=== PATIENT | female | born 1990 | race African-American/Black ===

== ENCOUNTER 2016-02-13 21:10 | Emergency (ER) | payer MEDICARE, MEDICAID ==
--- NOTE | 2016-02-13 21:30 | ER Document Report ---
ED Medical Screen (RME) - General Stated Complaint: VOMITING Time seen by provider: 21:29 Mode of Arrival: Ambulatory Information source: Patient Notes: 26 yo female told by her sexual partner that he was tx for gonorrhea and chlamydia in the ER. She has pelvic pain and was attributing it to her LUPUS> TRAVEL OUTSIDE OF THE [place] IN LAST 30 DAYS: No - Related Data Allergies/Adverse Reactions: ciprofloxacin [From Cipro] Allergy (Severe, Verified 11/28/12 21:23) ciprofloxacin HCl [From Cipro] Allergy (Severe, Verified 11/28/12 21:23) Past Medical History - Past Medical History Cardiac Medical History: Denies: Hx Hypercholesterolemia, Hx Hypertension Past Surgical History: Reports: Hx Orthopedic Surgery - Immunizations Hx Diphtheria, Pertussis, Tetanus Vaccination: - Unknown
[2016-02-13 22:15] LABS: ABSOLUTE LYMPHOCYTES (AUTO) 1.1 10^3/uL (0.5-4.7); ABSOLUTE MONOCYTES (AUTO) 0.4 10^3/uL (0.1-1.4); ABSOLUTE NEUT (AUTO) 3.4 10^3/uL (1.7-8.2); BASOPHILS % (AUTO) 0.7 % (0-2); HEMATOCRIT 33.8 % (36.0-47.0); HEMOGLOBIN 11.6 g/dL (12.0-15.5); LYMPHOCYTES % (AUTO) 21.7 % (13-45); MEAN CORPUSCULAR HEMOGLOBIN 29.6 pg (27.0-33.4); MEAN CORPUSCULAR HGB CONC 34.3 g/dL (32.0-36.0); MEAN CORPUSCULAR VOLUME 86 fl (80-97); MONOCYTES % (AUTO) 8.5 % (3-13); RED BLOOD COUNT 3.92 10^6/uL (3.72-5.28); RED CELL DISTRIBUTION WIDTH 12.6 % (11.5-14.0); SEGMENTED NEUTROPHILS % (AUTO) 68.1 % (42-78); WHITE BLOOD COUNT 4.9 10^3/uL (4.0-10.5)
[2016-02-13 22:20] LABS: APPEARANCE,URINE SLIGHTLY-CLOUDY; BILIRUBIN,URINE NEGATIVE (NEGATIVE); GLUCOSE, URINE NEGATIVE (NEGATIVE); KETONES,URINE NEGATIVE (NEGATIVE); LEUKOCYTE ESTERASE,URINE NEGATIVE (NEGATIVE); NITRITE,URINE NEGATIVE (NEGATIVE); PROTEIN,URINE >=500 mg/dL (NEGATIVE); URINE SPECIFIC GRAVITY 1.014; UROBILINOGEN,URINE NEGATIVE mg/dL (<2.0)
[2016-02-13 22:38] LABS: ALANINE AMINOTRANSFERASE 25 U/L (9-52); ALBUMIN 1.7 g/dL (3.5-5.0); ALKALINE PHOSPHATASE 84 U/L (38-126); ASPARTATE AMINO TRANSFERASE 17 U/L (14-36); BILIRUBIN,TOTAL 0.2 mg/dL (0.2-1.3); BLOOD UREA NITROGEN 10 mg/dL (7-20); CALCIUM 7.8 mg/dL (8.4-10.2); CARBON DIOXIDE 26 mmol/L (22-30); CHLORIDE 111 mmol/L (98-107); CREATININE RESULT 1.05 mg/dL (0.52-1.25); GLUCOSE 77 mg/dL (75-110); SODIUM 138.9 mmol/L (137-145); TOTAL PROTEIN 4.4 g/dL (6.3-8.2)
[2016-02-13 22:43] LABS: ANION GAP 2 (5-19)
--- NOTE | 2016-02-13 22:50 | ER Document Report ---
ED General - General Chief Complaint: Abdominal Pain Stated Complaint: VOMITING Mode of Arrival: Ambulatory Notes: Patient is a 26-year-old female presents with complaint of some lower extremity edema, worsening of her lupus rash, intermittent lower abdominal cramping. She' s had a few episodes of vomiting. She also has some diarrhea. Her boyfriend had some her symptoms with diarrhea and some vomiting. Recently her boyfriend was tested and treated for gonorrhea and chlamydia. She is concerned that maybe she has the same thing. She's had no abnormal vaginal discharge. She did have slight irregular vaginal bleeding but also recently changed her control. She is followed by [facility] for her lupus. She is currently on multiple medications. She is currently not on a prednisone burst. She takes 5 mg prednisone a day at this time. Subjective fevers. No other complaints at this time. TRAVEL OUTSIDE OF THE [place] IN LAST 30 DAYS: No - Related Data Allergies/Adverse Reactions: ciprofloxacin [From Cipro] Allergy (Severe, Verified 02/13/16 21:32) ciprofloxacin HCl [From Cipro] Allergy (Severe, Verified 02/13/16 21:32) Past Medical History - General Information source: Patient - Social History Smoking Status: Never Smoker Frequency of alcohol use: None Drug Abuse: None Family History: Reviewed & Not Pertinent - Past Medical History Cardiac Medical History: Denies: Hx Hypercholesterolemia, Hx Hypertension Past Surgical History: Reports: Hx Orthopedic Surgery - Immunizations Hx Diphtheria, Pertussis, Tetanus Vaccination: - Unknown Review of Systems - Review of Systems Notes: My Normal Review Basic REVIEW OF SYSTEMS: CONSTITUTIONAL : Subjective fever EENT: Denies eye, ear, throat, or mouth pain or symptoms. Denies nasal or sinus congestion. CARDIOVASCULAR: Denies chest pain. RESPIRATORY: Denies cough, cold, or chest congestion. Denies shortness of breath, difficulty breathing, or wheezing. GASTROINTESTINAL: Some abdominal pain, vomiting, and diarrhea. GENITOURINARY: Denies difficulty urinating, painful urination, burning, frequency, or blood in urine. FEMALE GENITOURINARY: 1 irregular episode of vaginal bleeding. MUSCULOSKELETAL: Denies neck or back pain or joint pain or swelling. SKIN: Is rash on face. NEUROLOGICAL: Denies altered mental status or loss of consciousness. Denies headache. Denies weakness or paralysis or loss of use of either side. Denies problems with gait or speech. Denies sensory or motor loss. ALL OTHER SYSTEMS REVIEWED AND NEGATIVE. Physical Exam - Vital signs Vitals: Temp Pulse Resp BP Pulse Ox 98.1 F 87 16 128/96 H 99 02/13/16 21:32 02/13/16 21:32 02/13/16 21:32 02/13/16 21:32 02/13/16 21:32 - Notes Notes: General Appearance: Well nourished, alert, cooperative, no acute distress, no obvious discomfort. Well-appearing. Vitals: reviewed, See vital signs table. Head: no swelling or tenderness to the head Eyes: PERRL, EOMI, Conjuctiva clear Mouth: No decreasd moisture Neck: Supple, no neck tenderness, No thyromegaly Lungs: No wheezing, No rales, No rhonci, No accessory muscle use, good air exchange bilaterally. Heart: Normal rate, Regular rythm, No murmur, no rub Abdomen: Normal BS, soft, No rigidity, No producible abdominal tenderness, No guarding, no rebound, no abdominal masses, no organomegaly Extremities: strength 5/5 in all extremities, good pulses in all extremities, no swelling or tenderness in the extremities, 1+ lower extremity edema. Skin: Butterfly pattern rash on face. Consistent with lupus. Neuro: speech clear, oriented x 3, normal affect, responds appropriately to questions. Course - Vital Signs Vital signs: Temp Pulse Resp BP Pulse Ox 98.1 F 87 16 128/96 H 99 02/13/16 21:32 02/13/16 21:32 02/13/16 21:32 02/13/16 21:32 02/13/16 21:32 - Laboratory Result Diagrams: 02/13/16 21:50 02/13/16 21:50 Laboratory results interpreted by me: 02/13/16 02/13/16 02/13/16 21:50 21:50 21:50 Hgb 11.6 L Hct 33.8 L Chloride 111 H Anion Gap 2 L Calcium 7.8 L Total Protein 4.4 L Albumin 1.7 L Urine Protein >=500 H Urine Ascorbic Acid 20 H - Transfer of Care Notes: 02/14/16 00:10 Patient continues to look well and feels improved. She had no actual vaginal discharge and her gonorrhea and Chlamydia testing were negative. I do not think that she transmitted diseases causing her symptoms. Her symptoms were consistent with a lupus flare being that she's had worsening of her malar rash as well as lower extremity edema. I did recommend increasing her prednisone. She prefers to wait to talk to her lupus doctor at [place] in the morning. I informed her that she must call her doctor at [place] in the morning to talk to him about doing a burst of the prednisone. Patient otherwise looks clinically very well. She's in no pain. She's in no distress. She has no difficulty breathing. She has no fevers. I feel she is safe to be discharged home. I strongly encourage her to return to ER she has any recurrence of her symptoms or feels unwell. Patient agrees with plan and will be discharged home. Dictation of this chart was performed using voice recognition software; therefore, there may be some unintended grammatical errors. Discharge - Discharge Clinical Impression: Abdominal pain Qualifiers: Abdominal location: unspecified location Qualified Code(s): R10.9 - Unspecified abdominal pain Vomiting Qualifiers: Vomiting type: unspecified Vomiting Intractability: non-intractable Nausea presence: with nausea Qualified Code(s): R11.2 - Nausea with vomiting, unspecified Edema Qualifiers: Edema type: unspecified Qualified Code(s): R60.9 - Edema, unspecified Condition: Good Disposition: HOME, SELF-CARE Additional Instructions: Please call your Lupus doctor at [place] in the morning to ask them about increasing your prednisone and to have a close follow appointment. Please return to the ER immediately if you have worsening recurrent abdominal pain, vomiting, fevers, or feel unwell.
[2016-02-13 23:47] LABS: CHLAM PCR NOT DETECTED (NOT DETECT)
[2016-02-14 00:29] VITALS: BP 128/92
== END 2016-02-14 00:27 | disposition home or self-care (01) ==
LOC: ER 21:10
DX: R11.2 Nausea with vomiting, unspecified (principal); R60.0 Localized edema; R21 Rash and other nonspecific skin eruption; R19.7 Diarrhea, unspecified; Z20.2 Contact with and (suspected) exposure to infections with a predominantly sexual mode of transmission; N93.9 Abnormal uterine and vaginal bleeding, unspecified; Z79.899 Other long term (current) drug therapy; Z79.52 Long term (current) use of systemic steroids; Z79.3 Long term (current) use of hormonal contraceptives; Z88.1 Allergy status to other antibiotic agents
CPT/HCPCS: 36415; 80053; 81001; 84703; 85025; 87491; 87591; 99284

== ENCOUNTER → 2016-02-25 | Outpatient (CLI) | payer MEDICARE, MEDICAID ==
[2016-02-25 14:47] LABS: APPEARANCE,URINE SLIGHTLY-CLOUDY; BILIRUBIN,URINE NEGATIVE (NEGATIVE); GLUCOSE, URINE NEGATIVE (NEGATIVE); KETONES,URINE NEGATIVE (NEGATIVE); LEUKOCYTE ESTERASE,URINE NEGATIVE (NEGATIVE); NITRITE,URINE NEGATIVE (NEGATIVE); PROTEIN,URINE >=500 mg/dL (NEGATIVE); URINE SPECIFIC GRAVITY 1.013; UROBILINOGEN,URINE NEGATIVE mg/dL (<2.0)
[2016-02-25 14:48] LABS: ABSOLUTE LYMPHOCYTES (AUTO) 0.8 10^3/uL (0.5-4.7); ABSOLUTE MONOCYTES (AUTO) 0.3 10^3/uL (0.1-1.4); ABSOLUTE NEUT (AUTO) 4.3 10^3/uL (1.7-8.2); BASOPHILS % (AUTO) 0.3 % (0-2); EOSINOPHILS % (AUTO) 0.2 % (0-6); HEMOGLOBIN 10.6 g/dL (12.0-15.5); HGB HCT DIFFERENCE -1.2; LYMPHOCYTES % (AUTO) 14.3 % (13-45); MEAN CORPUSCULAR HEMOGLOBIN 28.3 pg (27.0-33.4); MEAN CORPUSCULAR HGB CONC 32.1 g/dL (32.0-36.0); MEAN CORPUSCULAR VOLUME 88 fl (80-97); MONOCYTES % (AUTO) 5.2 % (3-13); RED BLOOD COUNT 3.75 10^6/uL (3.72-5.28); RED CELL DISTRIBUTION WIDTH 13.1 % (11.5-14.0); WHITE BLOOD COUNT 5.4 10^3/uL (4.0-10.5)
[2016-02-25 15:12] LABS: ALANINE AMINOTRANSFERASE 20 U/L (9-52); ASPARTATE AMINO TRANSFERASE 14 U/L (14-36); CREATININE RESULT 0.87 mg/dL (0.52-1.25)
[2016-02-27 16:37] LABS: COMPLEMENT C4 7 mg/dL (14-44)
[2016-02-28 07:14] LABS: COMPLEMENT C3 56 mg/dL (82-167)
== END ==
LOC: OD 13:39
PROVIDERS: ATTEND Nurse Practitioner Family
DX: M32.19 Other organ or system involvement in systemic lupus erythematosus (principal); Z79.899 Other long term (current) drug therapy
CPT/HCPCS: 36415; 81001; 82565; 84450; 84460; 85025; 86160; 86225

== ENCOUNTER → 2016-03-15 | Outpatient (CLI) | payer MEDICARE, MEDICAID ==
[2016-03-15 12:53] LABS: APPEARANCE,URINE SLIGHTLY-CLOUDY; BILIRUBIN,URINE NEGATIVE (NEGATIVE); GLUCOSE, URINE NEGATIVE (NEGATIVE); KETONES,URINE NEGATIVE (NEGATIVE); LEUKOCYTE ESTERASE,URINE TRACE (NEGATIVE); NITRITE,URINE NEGATIVE (NEGATIVE); PROTEIN,URINE >=500 mg/dL (NEGATIVE); URINE SPECIFIC GRAVITY 1.011; UROBILINOGEN,URINE NEGATIVE mg/dL (<2.0)
[2016-03-15 12:54] LABS: ABSOLUTE LYMPHOCYTES (AUTO) 0.8 10^3/uL (0.5-4.7); ABSOLUTE MONOCYTES (AUTO) 0.3 10^3/uL (0.1-1.4); ABSOLUTE NEUT (AUTO) 5.2 10^3/uL (1.7-8.2); BASOPHILS % (AUTO) 0.3 % (0-2); EOSINOPHILS % (AUTO) 0.4 % (0-6); HEMATOCRIT 31.2 % (36.0-47.0); HEMOGLOBIN 10.6 g/dL (12.0-15.5); HGB HCT DIFFERENCE 0.6; LYMPHOCYTES % (AUTO) 12.4 % (13-45); MEAN CORPUSCULAR HEMOGLOBIN 29.4 pg (27.0-33.4); MEAN CORPUSCULAR HGB CONC 34.1 g/dL (32.0-36.0); MEAN CORPUSCULAR VOLUME 86 fl (80-97); MONOCYTES % (AUTO) 4.9 % (3-13); RED BLOOD COUNT 3.61 10^6/uL (3.72-5.28); RED CELL DISTRIBUTION WIDTH 13.8 % (11.5-14.0); WHITE BLOOD COUNT 6.4 10^3/uL (4.0-10.5)
[2016-03-15 13:12] LABS: ALANINE AMINOTRANSFERASE 22 U/L (9-52); ASPARTATE AMINO TRANSFERASE 11 U/L (14-36); CREATININE RESULT 1.84 mg/dL (0.52-1.25)
[2016-03-16 08:42] LABS: COMPLEMENT C4 11 mg/dL (14-44)
[2016-03-16 08:59] LABS: COMPLEMENT C3 55 mg/dL (82-167)
[2016-03-16 10:57] LABS: POTASSIUM 4.8 mmol/L (3.6-5.0); SODIUM 135.4 mmol/L (137-145)
[2016-03-16 11:40] LABS: CREATININE URINE 106.2 mg/dL (Not Estab.)
== END ==
LOC: OD 12:10
PROVIDERS: ATTEND Internal Medicine
DX: M32.9 Systemic lupus erythematosus, unspecified (principal); Z79.899 Other long term (current) drug therapy; I10 Essential (primary) hypertension
CPT/HCPCS: 36415; 80051; 81001; 82565; 82570; 84132; 84156; 84450; 84460; 85025; 86160; 86225

== ENCOUNTER → 2016-04-06 | Outpatient (CLI) | payer MEDICARE, MEDICAID ==
[2016-04-06 13:17] LABS: HEMATOCRIT 27.8 % (36.0-47.0); HEMOGLOBIN 9.5 g/dL (12.0-15.5); HGB HCT DIFFERENCE 0.7; MEAN CORPUSCULAR HEMOGLOBIN 29.7 pg (27.0-33.4); MEAN CORPUSCULAR HGB CONC 34.4 g/dL (32.0-36.0); MEAN CORPUSCULAR VOLUME 87 fl (80-97); RED BLOOD COUNT 3.21 10^6/uL (3.72-5.28); RED CELL DISTRIBUTION WIDTH 14.8 % (11.5-14.0); WHITE BLOOD COUNT 1.8 10^3/uL (4.0-10.5)
[2016-04-06 13:22] LABS: APPEARANCE,URINE SLIGHTLY-CLOUDY; BILIRUBIN,URINE NEGATIVE (NEGATIVE); GLUCOSE, URINE NEGATIVE (NEGATIVE); KETONES,URINE NEGATIVE (NEGATIVE); LEUKOCYTE ESTERASE,URINE NEGATIVE (NEGATIVE); NITRITE,URINE NEGATIVE (NEGATIVE); PROTEIN,URINE >=500 mg/dL (NEGATIVE); URINE SPECIFIC GRAVITY 1.012; UROBILINOGEN,URINE NEGATIVE mg/dL (<2.0)
[2016-04-06 13:30] LABS: ALANINE AMINOTRANSFERASE 21 U/L (9-52); ASPARTATE AMINO TRANSFERASE 11 U/L (14-36); CREATININE RESULT 1.27 mg/dL (0.52-1.25)
[2016-04-06 13:37] LABS: BASOPHILS % (MANUAL) 0 % (0-2); EOSINOPHILS % (MANUAL) 0 % (0-6); LYMPHOCYTES % (MANUAL) 5 % (13-45); TOTAL CELLS COUNTED 100
[2016-04-06 13:38] LABS: ANISOCYTOSIS SLIGHT; TOXIC GRANULATION 1+
[2016-04-07 06:39] LABS: COMPLEMENT C4 17 mg/dL (14-44)
[2016-04-07 10:45] LABS: COMPLEMENT C3 73 mg/dL (82-167)
[2016-04-07 11:40] LABS: CREATININE URINE 109.9 mg/dL (Not Estab.)
== END ==
LOC: OD 12:29
PROVIDERS: ATTEND Nurse Practitioner Family
DX: M32.14 Glomerular disease in systemic lupus erythematosus (principal)
CPT/HCPCS: 36415; 81001; 82565; 82570; 84156; 84450; 84460; 85025; 86160; 86225

== ENCOUNTER → 2016-10-25 | Outpatient (CLI) | payer MEDICARE, MEDICAID ==
--- NOTE | 2016-10-25 10:13 | XCELERA REPORT ---
[address] [address] Lower Extremity Venous Evaluation Name: BELLE YEAGER Age: 26 yrs Gender: Female : 1990 Patient Status: Outpatient Patient Location: Study Date: 10/25/2016 08:34 AM Procedure: Color flow and duplex imaging bilaterally of the veins of the lower extremities as well as the Common Femoral veins. Reason For Study: OTHER SPECIFIED SOFT TISSUE DISORDER M79.89 Ordering Physician: IGOR HARMON Performed By: Sierra Valencia Right Sided Venous Evaluation Normal vessel filling wall to wall, compression and augmentation as well as Colour flow down to the infrageniculate veins. Left Sided Venous Evaluation Normal vessel filling wall to wall, compression and augmentation as well as Colour flow down to the infrageniculate veins. Interpretation Summary No duplex evidence of DVT or obstruction in the bilateral lower extremities. : IGOR HARMON > Anatoliy Carlin
== END ==
LOC: SP 08:21
PROVIDERS: ATTEND Internal Medicine
DX: M79.89 Other specified soft tissue disorders (principal)
CPT/HCPCS: 93970

== ENCOUNTER → 2017-05-16 | Outpatient (CLI) | payer MEDICARE, MEDICAID ==
--- NOTE | 2017-05-16 10:59 | RADIOLOGY REPORT (SQ) ---
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 TECHNIQUE: CT scanogram of the bilateral lower extremities is performed including pelvis to ankles. Measurements of femur, tibia, and entire lower extremities performed by the radiologist and saved to PACS. All CT scanners at this facility use dose modulation, iterative reconstruction, and/or weight based d osing when appropriate to reduce radiation dose to as low as reasonably achievable (ALARA). [facility]: Dose Right [facility]: CareDose [facility]: Dose Right [facility]: Teradose 4D [facility]: [employer] RADIATION DOSE: Less than 0.1 mGy LIMITATIONS: None. FINDINGS: RIGHT: FEMUR: 48.7 cm. TIBIA: 38.4 cm. TOTAL RIGHT LOWER EXTREMITY LENGTH: 87.3 cm. LEFT: FEMUR: 48.5 cm. TIBIA: 38.4 cm. TOTAL LEFT LOWER EXTREMITY LENGTH: 87.1 cm. 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 TECHNICAL DOCUMENTATION: JOB ID: [id number] Quality ID # [id number]: Final reports with documentation of one or more dose reduction techniques (e.g., Au tomated exposure control, adjustment of the mA and/or kV according to patient size, use of iterative reconstruction technique) 2010 [employer]- All Rights Reserved Reading location - IP/workstation name: [email or web address]
== END ==
LOC: RAD 09:19
PROVIDERS: ATTEND Podiatrist Foot & Ankle Surgery
DX: Q72.812 Congenital shortening of left lower limb (principal); Z96.642 Presence of left artificial hip joint
CPT/HCPCS: 77073

== ENCOUNTER → 2017-06-29 | Outpatient (CLI) | payer MEDICARE, MEDICAID ==
[2017-06-29 17:02] LABS: ABSOLUTE LYMPHOCYTES (AUTO) 1.2 10^3/uL (0.5-4.7); ABSOLUTE MONOCYTES (AUTO) 0.3 10^3/uL (0.1-1.4); ABSOLUTE NEUT (AUTO) 2.7 10^3/uL (1.7-8.2); BASOPHILS % (AUTO) 0.5 % (0-2); EOSINOPHILS % (AUTO) 0.5 % (0-6); HEMATOCRIT 29.7 % (36.0-47.0); MEAN CORPUSCULAR HEMOGLOBIN 29.5 pg (27.0-33.4); MEAN CORPUSCULAR HGB CONC 33.6 g/dL (32.0-36.0); MEAN CORPUSCULAR VOLUME 88 fl (80-97); MONOCYTES % (AUTO) 7.9 % (3-13); PLATELET COUNT 180 10^3/uL (150-450); RED BLOOD COUNT 3.38 10^6/uL (3.72-5.28); RED CELL DISTRIBUTION WIDTH 15.6 % (11.5-14.0); SEGMENTED NEUTROPHILS % (AUTO) 63.1 % (42-78); TOTAL CELLS COUNTED % (AUTO) 100 %; WHITE BLOOD COUNT 4.2 10^3/uL (4.0-10.5)
[2017-06-29 17:04] LABS: APPEARANCE,URINE SLIGHTLY-CLOUDY; BILIRUBIN,URINE NEGATIVE (NEGATIVE); COLOR,URINE YELLOW; GLUCOSE, URINE NEGATIVE (NEGATIVE); KETONES,URINE NEGATIVE (NEGATIVE); LEUKOCYTE ESTERASE,URINE NEGATIVE (NEGATIVE); NITRITE,URINE NEGATIVE (NEGATIVE); PROTEIN,URINE >=500 mg/dL (NEGATIVE); URINE SPECIFIC GRAVITY 1.015; UROBILINOGEN,URINE NEGATIVE mg/dL (<2.0)
[2017-06-29 17:20] LABS: BLOOD UREA NITROGEN 17 mg/dL (7-20); CALCIUM 7.6 mg/dL (8.4-10.2); CREATINE KINASE 44 U/L (30-135); GLUCOSE 79 mg/dL (75-110); POTASSIUM 4.2 mmol/L (3.6-5.0)
[2017-06-29 17:24] LABS: URINE CREATININE 150.9 mg/dL (16-327)
[2017-06-29 17:26] LABS: CARBON DIOXIDE 24 mmol/L (22-30); CHLORIDE 115 mmol/L (98-107); SODIUM 138.8 mmol/L (137-145)
[2017-06-29 17:28] LABS: ANION GAP 2 (5-19)
[2017-06-29 17:54] LABS: UR PRO/CREAT RATIO RESULT 6.6 mg/mg (0.0-0.2); URINE PROTEIN 989.2 mg/dL (<12)
== END ==
LOC: OD 16:29
PROVIDERS: ATTEND Internal Medicine
DX: M32.14 Glomerular disease in systemic lupus erythematosus (principal); M87.152 Osteonecrosis due to drugs, left femur; R05 Cough; R06.02 Shortness of breath; M79.89 Other specified soft tissue disorders; D64.9 Anemia, unspecified; Z11.59 Encounter for screening for other viral diseases
CPT/HCPCS: 36415; 80048; 81001; 82550; 82570; 83735; 84156; 85025

== ENCOUNTER → 2019-12-15 | Outpatient (CLI) | payer MEDICARE, MEDICAID ==
[2019-12-15 18:43] LABS: APPEARANCE,URINE CLEAR; BILIRUBIN,URINE NEGATIVE (NEGATIVE); COLOR,URINE STRAW; GLUCOSE, URINE NEGATIVE (NEGATIVE); KETONES,URINE NEGATIVE (NEGATIVE); LEUKOCYTE ESTERASE,URINE NEGATIVE (NEGATIVE); NITRITE,URINE NEGATIVE (NEGATIVE); PROTEIN,URINE >=500 mg/dL (NEGATIVE); URINE SPECIFIC GRAVITY 1.008; UROBILINOGEN,URINE NEGATIVE mg/dL (<2.0)
[2019-12-15 18:45] LABS: ABSOLUTE EOSINOPHILS # (AUTO) 0.1 10^3/uL (0.0-0.6); ABSOLUTE LYMPHOCYTES (AUTO) 1.7 10^3/uL (0.5-4.7); ABSOLUTE MONOCYTES (AUTO) 0.2 10^3/uL (0.1-1.4); ABSOLUTE NEUT (AUTO) 3.5 10^3/uL (1.7-8.2); BASOPHILS % (AUTO) 0.7 % (0-2); EOSINOPHILS % (AUTO) 1.4 % (0-6); HEMATOCRIT 38.4 % (36.0-47.0); HEMOGLOBIN 12.9 g/dL (12.0-15.5); LYMPHOCYTES % (AUTO) 30.4 % (13-45); MEAN CORPUSCULAR HGB CONC 33.5 g/dL (32.0-36.0); MEAN CORPUSCULAR VOLUME 84 fl (80-97); MONOCYTES % (AUTO) 4.4 % (3-13); PLATELET COUNT 247 10^3/uL (150-450); RED CELL DISTRIBUTION WIDTH 13.6 % (11.5-14.0); SEGMENTED NEUTROPHILS % (AUTO) 63.1 % (42-78); TOTAL CELLS COUNTED % (AUTO) 100 %; WHITE BLOOD COUNT 5.5 10^3/uL (4.0-10.5)
[2019-12-15 19:09] LABS: ASPARTATE AMINO TRANSFERASE 29 U/L (14-36)
[2019-12-15 19:12] LABS: URINE CREATININE 23.1 mg/dL (16-327)
[2019-12-15 19:22] LABS: UR PRO/CREAT RATIO RESULT 13.3 mg/mg (0.0-0.2); URINE PROTEIN 307.2 mg/dL (<12)
== END ==
LOC: OD 15:30
PROVIDERS: ATTEND Internal Medicine
DX: M32.14 Glomerular disease in systemic lupus erythematosus (principal); Z79.899 Other long term (current) drug therapy
CPT/HCPCS: 36415; 81001; 82306; 82542; 82565; 82570; 84156; 84450; 84460; 85025; 86160; 86225